=== PATIENT | female | born 1995 | race Hispanic/Latino ===

== ENCOUNTER 2019-12-16 04:16 | Observation (INO) | payer MEDICAID ==
[~2019-12-16] VITALS: Ht 154.9 cm; Wt 47.6 kg
[2019-12-16] MEDS ORDERED: LACTATED RINGERS 1000ML 1,000 ML IV PRN ×2 (04:25→05:15)
[2019-12-16 05:04] VITALS: BP 109/69
== END 2019-12-16 07:05 | disposition home or self-care (01) ==
LOC: EDH 04:16 → LDH 04:28
DX: O62.9 Abnormality of forces of labor, unspecified (principal); Z3A.37 37 weeks gestation of pregnancy
CPT/HCPCS: 81001; 96360; 99284; G0378 ×3; J7120

== ENCOUNTER 2019-12-26 21:51 | Inpatient (IN) | payer MEDICAID ==
[~2019-12-26] VITALS: Ht 154.9 cm; Wt 48.5 kg
[~2019-12-26 21:51] MED LIST: PREN-67 PO
[2019-12-26] MEDS ORDERED: LACTATED RINGERS 1000ML 1,000 ML IV PRN ×2 (22:05→22:19)
[2019-12-26] MEDS ORDERED: OXYTOCIN-LR 20 UNITS/1000 ML 1,000 ML IV SCH (22:30)
[2019-12-26 22:32] LABS: HEMATOCRIT 35.9 % (36-48); MEAN CORPUSCULAR HEMOGLOBIN 27.5 pg (27.0-33.0); MEAN CORPUSCULAR VOLUME 85.9 fL (79-99); RED BLOOD CELL COUNT(AUTO) 4.18 MIL/uL (4.00-5.50); WHITE BLOOD COUNT (AUTO) 10.6 K/uL (4.8-10.8)
[2019-12-26 22:37] LABS: APPEARANCE,URINE Clear (CLEAR); BILIRUBIN,URINE Negative (NEGATIVE); COLOR,URINE Yellow (YELLOW); GLUCOSE, URINE (UA) Negative (NEGATIVE); KETONES,URINE Trace mg/dL (NEGATIVE); LEUKOCYTE ESTERASE ,URINE Negative (NEGATIVE); NITRATE,URINE Negative (NEGATIVE); OCCULT BLOOD,URINE Negative (NEGATIVE); PROTEIN,URINE Negative (NEGATIVE)
[2019-12-26] MEDS ORDERED: MEPERIDINE-PF 50 MG/ML SYG ONE (23:55)
[2019-12-26] MEDS: PROMETHAZINE HCL 25 MG/ML 1ML AMPULE IM SCH (23:58)
[2019-12-27] MEDS ORDERED: MEPERIDINE-PF 50 MG/ML SYG IVP ONE
[2019-12-27] MEDS ORDERED: IBUPROFEN 600 MG TABLET ONE (02:43)
[2019-12-27] MEDS ORDERED: WITCH HAZEL 1 PAD TP PRN (03:30)
[2019-12-27] MEDS ORDERED: BENZOCAINE/LANOLIN/ALOE VERA 60 ML AEROSOL TP PRN (03:30)
[2019-12-27] MEDS ORDERED: LANOLIN 30GM OINTMENT TP PRN (03:30)
[2019-12-27] MEDS ORDERED: ACETAMINOPHEN-CODEINE 300/30MG TAB PO PRN (03:30)
[2019-12-27] MEDS ORDERED: OXYTOCIN-LR 20 UNITS/1000 ML 1,000 ML IV SCH (03:30)
--- NOTE | 2019-12-27 03:47 | NUR ---
Receiving pt with spouse & to [facility] [address]. Oriented to room, call button & staff; Instructing to call for assistance to bathroom due to IV and monitoring voids & vaginal bleeding; pt & spouse voices understanding & agrees to plan
--- NOTE | 2019-12-27 04:00 | NUR ---
Received with 1000ml lr with 20 units pitocin infusing@125ml/hr via pump to left wrist; Encouraging to call for any concerns or assistance to bathroom, informing of possible increase bleeding & instructing to report increase bleeding, clots or pain. Pt voices understanding. Offering sandwich tray & juice, pt agrees and requesting sandwich for spouse.
[2019-12-27 04:49] VITALS: BP 96/50
--- NOTE | 2019-12-27 05:15 | NUR ---
Assisting up to bathroom, voiding well, explaining and demonstrating use of TUCKS for perineal discomfort; pt agrees.
[2019-12-27 07:32] VITALS: BP_SYST 84; BP_SYST 96; BP_DIAS 40; BP_DIAS 63
[2019-12-27] MEDS: DOCUSATE SODIUM 100 MG CAP PO SCH ×2 (09:13→21:07)
--- NOTE | 2019-12-27 09:13 | NUR ---
EDUCATED PATIENT ON COVID19 PRECAUTIONS, INFORMED PATIENT THAT MASK MUST BE WORN WHEN STAFF ENTERS THE ROOM. PATIENT VERBALIZED UNDERSTANDING ON PUT ON MASK.
[2019-12-27] MEDS: IBUPROFEN 600 MG TABLET PO PRN ×2 (09:14→18:49)
[2019-12-27 11:22] VITALS: BP 99/62
--- NOTE | 2019-12-27 11:55 | NUR ---
REEDUCATED PATIENT TO PUT MASK ON WHEN STAFF ENTERS THE ROOM.
--- NOTE | 2019-12-27 12:00 | NUR ---
SPOKE WITH DR. KLEIN VIA TELEPHONE. UPDATED ON PATIENT'S STATUS. NEW ORDERS RECEIVED, PATIENT OKAY TO BE DISCHARGED WHEN BABY IS DISCHARGED IF PT FEELS OKAY.
[2019-12-27 16:41] VITALS: BP 91/56
[2019-12-27 19:45] VITALS: BP 98/61
[2019-12-27 23:32] VITALS: BP 87/47
[2019-12-28] MEDS: PROMETHAZINE HCL 25 MG/ML 1ML AMPULE IM SCH
[2019-12-28 03:34] VITALS: BP 109/67
[2019-12-28 07:16] LABS: HEPATITIS Bs ANTIGEN SCREEN P Negative (Negative)
[2019-12-28 07:51] VITALS: BP 93/51
[2019-12-28] MEDS: DOCUSATE SODIUM 100 MG CAP PO SCH (08:38)
[2019-12-28] MEDS: IBUPROFEN 600 MG TABLET PO PRN (08:38)
[2019-12-28 11:18] VITALS: BP 101/61
--- NOTE | 2019-12-28 13:30 | NUR ---
DISCHARGE PT LEFT UNIT VIA WHEELCHAIR, WITH BABY IN ARMS, ACCOMPANIED BY SIGNIFICANT OTHER. DENIED PAIN AND HAD NO COMPLAINTS. BABY STRAPPED IN CAR SEAT. PT AND BABY TRANSPORTED BY PERSONAL VEHICLE.
== END 2019-12-28 13:30 | disposition home or self-care (01) | DRG 560 ==
LOC: EDH 21:51 → OBSVTOIN 21:52 → LDH 21:52 → WSH 12-27 03:45
PROC: 10E0XZZ Delivery of Products of Conception, External Approach (ICD-10-PCS; principal; 2019-12-27)
PROC: 10907ZC Drainage of Amniotic Fluid, Therapeutic from Products of Conception, Via Natural or Artificial Opening (ICD-10-PCS; 2019-12-27)
DX: O80 Encounter for full-term uncomplicated delivery (principal); Z3A.38 38 weeks gestation of pregnancy; Z37.0 Single live birth
CPT/HCPCS: 36415; 81003; 85027; 86592; 86850; 86900; 86901; 87340; G0378; J2175; J2590

== ENCOUNTER 2022-11-01 05:56 | Day surgery (SDC) | payer MEDICAID ==
[2022-10-31 15:44] LABS: BASOPHILS % (AUTO) 0.3 % (0.0-5.0); EOSINOPHILS % (AUTO) 1.2 % (0.0-8.0); HEMATOCRIT 41.4 % (36-48); LYMPHOCYTES % (AUTO) 31.8 % (21.0-51.0); MEAN CORPUSCULAR HEMOGLOBIN 31.2 pg (27.0-33.0); MEAN CORPUSCULAR HGB CONC 32.9 g/dL (32.0-36.0); MONOCYTES % (AUTO) 9.3 % (3.0-13.0); NEUTROPHILS % (AUTO) 57.1 % (40.0-77.0); PLATELET COUNT (AUTO) 277 K/uL (130-400); RED BLOOD CELL COUNT(AUTO) 4.36 MIL/uL (4.00-5.50); RED CELL DISTRIBUTION WIDTH 12.5 % (11.0-15.5); WHITE BLOOD COUNT (AUTO) 7.5 K/uL (4.8-10.8)
[2022-11-01] VITALS (17 sets, daily range): BP systolic 90–115; BP diastolic 56–79
[2022-11-01] MEDS ORDERED: LACTATED RINGERS 1000ML 1,000 ML IV ONE (06:20)
[2022-11-01] MEDS ORDERED: CEFAZOLIN SODIUM 2 GM VIAL ONE (06:20)
[2022-11-01] MEDS ORDERED: ONDANSETRON 4MG INJ ONE (07:01)
[2022-11-01] MEDS ORDERED: FENTANYL CITRATE PF 50 MCG/1 ML 2ML VIAL ONE ×2 (07:01→08:53)
[2022-11-01] MEDS ORDERED: PROPOFOL 10 MG/ML 20ML VIAL IV ONE (07:01)
[2022-11-01] MEDS ORDERED: MIDAZOLAM HCL 1 MG/ML 2ML VIAL ONE (07:02)
[2022-11-01] MEDS ORDERED: ROCURONIUM 10MG/1ML SYR 10 MG/ML ML ONE (07:02)
[2022-11-01] MEDS ORDERED: CEFAZOLIN SODIUM 2 GM VIAL IVPB ONE (08:05)
[2022-11-01] MEDS ORDERED: BUPIVACAINE/PF 0.25% 30ML VIAL IJ ONE (08:32)
[2022-11-01] MEDS ORDERED: KETOROLAC 30MG VIAL (30MG/ML) ONE (08:51)
[2022-11-01] MEDS ORDERED: GLYCOPYRROLATE 1 MG/5 ML SYRINGE ONE (08:51)
[2022-11-01] MEDS ORDERED: NEOSTIGMINE 5MG/5ML SYR IV ONE (08:52)
== END 2022-11-01 10:50 | disposition home or self-care (01) ==
LOC: DAH 05:56
PROVIDERS: ATTEND Obstetrics & Gynecology
DX: Z30.2 Encounter for sterilization (principal); Z20.822 Contact with and (suspected) exposure to COVID-19; T83.39XA Other mechanical complication of intrauterine contraceptive device, initial encounter; N81.2 Incomplete uterovaginal prolapse; G43.909 Migraine, unspecified, not intractable, without status migrainosus; J45.909 Unspecified asthma, uncomplicated; Y83.8 Other surgical procedures as the cause of abnormal reaction of the patient, or of later complication, without mention of misadventure at the time of the procedure
CPT/HCPCS: 87426; 84703; 85025; 86850; 86900; 86901; 36415; 58661; 58301; A4663; A4215 ×2; A4223; A4222; A6260; A4221; A4351; A4606; J7120; J3010 ×2; J3490 ×2; J2710; J2250; J2405; J1885; J0690 ×2; C1769 ×3; A4649 ×2; S0020; J2704

== ENCOUNTER 2023-02-19 05:21 | Emergency (ER) | payer MEDICAID ==
[~2023-02-19] VITALS: Ht 154.9 cm; Wt 39.6 kg
[2023-02-19 05:56] LABS: BASOPHILS # (AUTO) 0.02 K/uL (0.00-0.20); BASOPHILS % (AUTO) 0.1 % (0.0-5.0); EOSINOPHILS # (AUTO) 0.03 K/uL (0.00-0.70); EOSINOPHILS % (AUTO) 0.2 % (0.0-8.0); HEMATOCRIT 43.9 % (36-48); IMMATURE GRANULOCYTE ABSOLUTE 0.05 K/uL (0-1); LYMPHOCYTES # (AUTO) 0.4 K/uL (1.0-4.8); LYMPHOCYTES % (AUTO) 2.3 % (21.0-51.0); MEAN CORPUSCULAR HEMOGLOBIN 31.2 pg (27.0-33.0); MEAN CORPUSCULAR HGB CONC 34.2 g/dL (32.0-36.0); MEAN CORPUSCULAR VOLUME 91.3 fL (79-99); MONOCYTES # (AUTO) 0.3 K/uL (0.1-1.0); MONOCYTES % (AUTO) 1.7 % (3.0-13.0); NEUTROPHILS % (AUTO) 95.4 % (40.0-77.0); PLATELET COUNT (AUTO) 279 K/uL (130-400); RED BLOOD CELL COUNT(AUTO) 4.81 MIL/uL (4.00-5.50); RED CELL DISTRIBUTION WIDTH 12.1 % (11.0-15.5); WHITE BLOOD COUNT (AUTO) 15.8 K/uL (4.8-10.8)
[2023-02-19] MEDS ORDERED: 0.9%NACL 1000ML 1,000 ML IV ONE ×3 (06:00→06:30)
[2023-02-19] MEDS ORDERED: ONDANSETRON 4MG INJ IVP ONE (06:00)
[2023-02-19 06:04] LABS: CREATININE 0.9 mg/dL (0.5-1.5)
[2023-02-19 06:09] LABS: ALBUMIN 4.6 g/dL (3.5-5.0); BILIRUBIN,TOTAL 0.9 mg/dL (0.2-1.0); TOTAL PROTEIN, SERUM 8.6 g/dL (6.0-8.3)
[2023-02-19 06:47] LABS: SARS-CoV-2, RNA, NAAT NEGATIVE SARS CoV-2 (NEGATIVE)
[2023-02-19 06:53] LABS: INFLUENZA TYPE A Negative For Type A (NEGATIVE); INFLUENZA TYPE B Negative For Type B (NEGATIVE)
[2023-02-19 07:22] VITALS: BP 115/57; PULSE 92; RESP 16; O2SAT 100
[2023-02-19 07:48] LABS: APPEARANCE,URINE CLEAR (CLEAR); BILIRUBIN,URINE NEGATIVE (NEGATIVE); COLOR,URINE LIGHT-YELLOW (YELLOW); GLUCOSE, URINE (UA) NEGATIVE (NEGATIVE); KETONES,URINE 10 mg/dL (NEGATIVE); LEUKOCYTE ESTERASE ,URINE NEGATIVE Leu/uL (NEGATIVE); NITRATE,URINE NEGATIVE (NEGATIVE); OCCULT BLOOD,URINE NEGATIVE (NEGATIVE); PROTEIN,URINE NEGATIVE (NEGATIVE); UROBILINOGEN,URINE 0.2 mg/dL (0.2-1.0)
[2023-02-19] MEDS ORDERED: ONDA4TAB10 PO (07:48)
[2023-02-19] MEDS ORDERED: DIPH1TAB PO (07:48)
[2023-02-19 07:49] LABS: ADD UA MICROSCOPIC YES
[2023-02-19 08:00] LABS: BACTERIA,URINE RARE /HPF (None Seen); MUCUS,URINE RARE LPF (None Seen); RBC,URINE 0-1 /HPF (0-1); SQUAMOUS EPITHELIAL CELL,UR RARE /HPF (0-2); WBC,URINE 0-1 /HPF (0-1)
== END 2023-02-19 08:36 | disposition home or self-care (01) ==
LOC: EDH 05:21
DX: R11.2 Nausea with vomiting, unspecified (principal); R19.7 Diarrhea, unspecified; Z20.822 Contact with and (suspected) exposure to COVID-19
CPT/HCPCS: 99283; 96374; 87635; 96361; 80053; 84703; 83690; 85025; 87804 ×2; 81001; 36415; C9803; J7030 ×3; J2405